=== PATIENT | male | born 1980 | race Hispanic/Latino ===

== ENCOUNTER 2017-02-16 21:15 | Emergency (ER) | payer MEDICARE, OTHER ==
[~2017-02-16] VITALS: Ht 160 cm; Wt 99.8 kg
[~2017-02-16 21:15] MED LIST: BISACODYL10 MG PR; CLONAZEPAM1 MG PO; DURAGESIC1 EAC1 TD; FENTANYL1 EAC2 TD; HYDROCHLOROTHIA25 MG PO; MIRALAX17 GM PO; OMEPRAZOLE20 MG PO; ONDANSETRON HCL4 MG PO; OXYCODONE HCL5 MG PO; PHENERGAN25 MG RC; SPIRONOLACTONE50 MG PO
[2017-02-16] MEDS ORDERED: COREG3.125 MG PO (21:28)
== END 2017-02-17 01:16 | disposition home or self-care (01) ==
LOC: ED 21:15
DX: R11.10 Vomiting, unspecified (principal); Z86.73 Personal history of transient ischemic attack (TIA), and cerebral infarction without residual deficits; Z91.018 Allergy to other foods; Z79.899 Other long term (current) drug therapy
CPT/HCPCS: 36415; 70450; 80053; 85025; 96361; 96374; 96375; 99284; J1200; J2405; J2765; J7040

== ENCOUNTER 2018-08-28 23:16 | Emergency (ER) | payer MEDICARE, OTHER ==
[~2018-08-28] VITALS: Ht 160 cm; Wt 95.2 kg
[~2018-08-28 23:16] MED LIST changes: +COREG3.125 MG PO
[2018-08-28] MEDS ORDERED: LISINOPRIL20 MG PO (23:39)
[2018-08-28] MEDS ORDERED: HYDROCHLOROTHIA25 MG PO (23:39)
--- NOTE | 2018-08-29 23:18 | EKG ---
[facility] [address] [place], [place] [address] Signed Normal sinus rhythm Normal ECG No previous ECGs available Confirmed by ARNULFO ANDREWS MD ([id number]) on 08/29/2018 11:18:28 PM Electronically Signed By: ARNULFO ANDREWS MD 08/29/18 2318 PATIENT NAME: CAROL LIAO Electrocardiogram DATE OF : 78 PHYSICIAN: ARNULFO ANDREWS MD REPORT #: [id number] REPORT IS CONFIDENTIAL AND NOT TO BE RELEASED WITHOUT AUTHORIZATION
== END 2018-08-29 03:40 | disposition home or self-care (01) ==
LOC: ED 23:16
DX: R26.81 Unsteadiness on feet (principal); Z86.73 Personal history of transient ischemic attack (TIA), and cerebral infarction without residual deficits; Z91.018 Allergy to other foods; Z79.899 Other long term (current) drug therapy
CPT/HCPCS: 36415; 70450; 80053; 81001; 84484; 85025; 93005; 93010; 99284-25; G0480

== ENCOUNTER 2021-02-04 05:50 | Day surgery (SDC) | payer MEDICARE, OTHER ==
[~2021-02-04] VITALS: Ht 160 cm; Wt 92.3 kg
[~2021-02-04 05:50] MED LIST changes: +ALLOPURINOL100 MG PO; +CALCITRIOL0.25 MCG PO; +LACTULOSE10 GM/15 M PO; +LISINOPRIL20 MG PO; +STOOL SOFTENER100 MG PO
--- NOTE | 2021-02-04 08:05 | NUR ---
02/04/21 0805 Irene Rodríguez 9085 PT ARRIVED IN PACU NON RESPONSIVE TO NOXIOUS STIMULI WITH OPA AND NPA IN PLACE. ABD SOFT AND PASSING FLATUS. 0800 NO CHANGE IN STATUS. NON RESPONSIVE.
--- NOTE | 2021-02-04 13:37 | NUR ---
PT RESTING IN BED, LANGUAGE BARRIER IS AN ISSUE. PTS' SISTER PRESENT, SPEAKS FLUENT ENGLIGH. PT DID NOT SPEAK AT ALL. GAVE BLESSSING, WILL FOLLOW
--- NOTE | 2021-02-05 08:13 | OR ---
[facility] [address] [place], [place] [address] Signed DATE OF OPERATION: 02/04/2021 SURGEON: Hernesto Garibay MD PREOPERATIVE DIAGNOSES: 1. Mother with colonic polyps in her 60s. 2. Chronic constipation. 3. Chronic intermittent rectal bleeding. 4. Hemorrhoids. 5. Diverticulosis. 6. Hyperplastic rectal polyp 2010. 7. Anemia of chronic kidney disease. POSTOPERATIVE DIAGNOSES: 1. Djyahov-cn-fostaghn diverticulosis. 2. Neumtvr-go-gukfvhjb internal hemorrhoids. PROCEDURE: Colonoscopy without biopsy. ESTIMATED BLOOD LOSS: None. INDICATIONS: Carol is a 40-year-old gentleman with long-time significant schizophrenia. He lives with his family and they help him significantly. He underwent colonoscopy back in 2010, was found to have a hyperplastic polyp in the rectum along with some diverticulosis and hemorrhoids. He has chronic constipation and suffers with intermittent rectal bleeding. He uses Citrucel and docusate to help with his bowel movements. We know his mother had colonic polyps removed in her 60s as well. Also, afraid he has anemia of chronic kidney disease. He was asked to see me for followup colonoscopy. In the office, I met with Carol and his brother and sister. I gave them a pamphlet on colonoscopy and we reviewed the nature of that test. There is risk including, but not limited to gas bloating, crampy abdominal pain, bleeding, perforation requiring surgery, and missed diagnosis. He also understands the need for monitored anesthesia care, given his very round full face, short heavy neck, and significant medical issues. We used monitored anesthesia care back in 2010 and worked out well today. He clearly obstructs airway very quickly. We had to use an oral airway during the procedure. Electronically Signed By: HERNESTO GARIBAY MD 02/05/21 0813 PATIENT NAME: CAROL LIAO OPERATIVE REPORT DATE OF : 78 REPORT #: [id number] PHYSICIAN: HERNESTO GARIBAY MD PCP: TERE DYER MD REPORT IS CONFIDENTIAL AND NOT TO BE RELEASED WITHOUT AUTHORIZATION [facility] [address], [place] [address] Signed DESCRIPTION OF PROCEDURE: Carol was taken into the endoscopy suite and placed in the left lateral decubitus position. He was maintained on IV propofol per our nurse drug and alcohol treatment specialist. A digital rectal exam was performed and this was unremarkable. Not too much in the way of any external hemorrhoid tissue. He had good sphincter tone. The adult colonoscope was then introduced and advanced around into the cecum under direct visualization of the camera. It took some extra sedation, abdominal compression, and rotating pretty in the supine position in order to reach the cecum. His prep was good. The scope was slowly withdrawn. We took pictures throughout for photodocumentation. Again, he has moderate-sized diverticula scattered throughout the colon. No polyps on this occasion. The rectum was unremarkable. Upon retroflexion of the scope, he does have gqbtrjj-of-vsvussjd internal hemorrhoid columns. After this, the gas was suctioned out and colonoscope removed. Carol tolerated procedure quite well. RECOMMENDATIONS: Carol can follow up in 5 years for repeat colonoscopy, given his mother's history. He can pursue conservative measures for his hemorrhoids including MiraLAX either on a daily basis or as needed for his constipation in addition to the Citrucel and docusate. He is also welcome to use any petroleum based product for lubrication before bowel movements. Hernesto Garibay MD ALB/MODL /[id number] cc: Chart Filed Incomplete MD Tere Galloway MD Copies: CHART FILED INCOMPLETE Electronically Signed By: HERNESTO GARIBAY MD 02/05/21812 PATIENT NAME: CAROL LIAO OPERATIVE REPORT DATE OF : 78 REPORT #: [id number] PHYSICIAN: HERNESTO GARIBAY MD PCP: TERE DYER MD REPORT IS CONFIDENTIAL AND NOT TO BE RELEASED WITHOUT AUTHORIZATION [facility] [address] [place] [address] [place], [place] [address] Signed HERNESTO GARIBAY MD ~ Electronically Signed By: HERNESTO GARIBAY MD 02/05/21812 PATIENT NAME: CAROL LIAO OPERATIVE REPORT DATE OF : 78 REPORT #: [id number] PHYSICIAN: HERNESTO GARIBAY MD PCP: TERE DYER MD REPORT IS CONFIDENTIAL AND NOT TO BE RELEASED WITHOUT AUTHORIZATION
== END 2021-02-04 08:25 | disposition home or self-care (01) ==
LOC: DS 05:50 → OPS 05:50 → DS 07:00 → OPS 07:00
PROVIDERS: ATTEND Colon & Rectal Surgery
PROC: 0DJD8ZZ Inspection of Lower Intestinal Tract, Via Natural or Artificial Opening Endoscopic (ICD-10-PCS; principal; 2021-02-04 07:00)
DX: K57.31 Diverticulosis of large intestine without perforation or abscess with bleeding (principal); K64.8 Other hemorrhoids; I12.9 Hypertensive chronic kidney disease with stage 1 through stage 4 chronic kidney disease, or unspecified chronic kidney disease; N18.4 Chronic kidney disease, stage 4 (severe); N25.81 Secondary hyperparathyroidism of renal origin; I67.5 Moyamoya disease; D63.1 Anemia in chronic kidney disease; E66.01 Morbid (severe) obesity due to excess calories; Z83.71 Family history of colonic polyps; Z87.19 Personal history of other diseases of the digestive system; Z79.899 Other long term (current) drug therapy; Z91.040 Latex allergy status; Z91.018 Allergy to other foods; Z68.36 Body mass index [BMI] 36.0-36.9, adult; Z01.812 Encounter for preprocedural laboratory examination; Z20.822 Contact with and (suspected) exposure to COVID-19; Z86.73 Personal history of transient ischemic attack (TIA), and cerebral infarction without residual deficits
CPT/HCPCS: J2704; J7121

== ENCOUNTER 2023-03-20 13:21 | Inpatient (IN) | payer MEDICARE, OTHER ==
[~2023-03-20] VITALS: Ht 160 cm; Wt 89.4 kg
--- OUTSIDE RECORDS SUMMARY | ~2023-03-20 | XMS | Continuity of Care Document ---
Demographics + + + | Address | [address] | | | [place] [address] | + + + | Preferred Language | Unknown | + + + | Marital Status | Never | + + + | Oriental Orthodox Affiliation | Unknown | + + + | Race | Unknown | + + + | Ethnic Group | Unknown | + + + Author + + + | Author | [facility] | + + + | Organization | [facility] | + + + | Address | [address] | | | [place] [address] | + + + | Phone | | + + + Care Team Providers + + + + | Care Manager Planning Name | Role | Phone | + + + + Unavailable | Unavailable | + + + + Allergies No information. Encounters No information. Functional Status No information. Immunizations No information. Medications No information. Problems + + + + | date | description | facility | + + + + | 2022-12-27 11:44 | UNILATERAL PRIMARY | [facility] | | | OSTEOARTHRITIS, RIGHT KNEE | | + + + + | 2022-12-27 11:44 | SYNOVIAL CYST OF POPLITEAL | [facility] | | | SPACE [MAGAÑA], RIGHT KNEE | | + + + + Procedures No information. Results/Labs No information. Social History No information. Vital Signs No information."
--- OUTSIDE RECORDS SUMMARY | ~2023-03-20 | XMS | Continuity of Care Document ---
Demographics + + + | Address | [address] | | | [place] [address] | + + + | Preferred Language | Unknown | + + + | Marital Status | Never | + + + | Islam Affiliation | Unknown | + + + | Race | Unknown | + + + | Ethnic Group | Unknown | + + + Author + + + | Author | [facility] | + + + | Organization | [facility] | + + + | Address | [address] | | | [place] [address] | + + + | Phone | | + + + Care Team Providers + + + + | Care Nuclear Equipment Research Engineer Name | Role | Phone | + [...]
--- OUTSIDE RECORDS SUMMARY | ~2023-03-20 | XMS | Continuity of Care Document ---
Demographics + + + | Address | [address] | | | [place] [address] | + + + | Preferred Language | Unknown | + + + | Marital Status | Never | + + + | Cheondoism Affiliation | Unknown | + + + | Race | Unknown | + + + | Ethnic Group | Unknown | + + + Author + + + | Author | [facility] | + + + | Organization | [facility] | + + + | Address | [address] | | | [place] [address] | + + + | Phone | | + + + Care Team Providers + + + + | Care Quote Clerk Name | Role | Phone | + + + + Unavailable | Unavailable | + + + + Allergies and Intolerances + + + + + + | date | description | facility | reaction | severity | + + + + + + | (no date) | latex | [facility] | (no reaction) | (no severity) | + + + + + + | (no date) | tomato | [facility] | (no reaction) | (no severity) | + + + + + + | (no date) | orange | [facility] | (no reaction) | (no severity) | + + + + + + Encounters No information. Functional Status No information. [...]
[2023-03-20] MEDS ORDERED: ALLOPURINOL300 MG PO (13:55)
[2023-03-20 14:05] LABS: BASOPHILS 0.8 % (0-2); HEMATOCRIT 27.5 % (35.0-50.0); LYMPHOCYTES 2.2 % (24-44); MCH 30.5 (27-36); MCHC 32.8 g/dl (30-36); MONOCYTES 7.4 % (0-12); NEUTROPHILS 89.6 % (39-80); PLATELET COUNT 185 K/uL (140-440); RBC 2.96 M/ul (4.3-5.7); RDW 15.3 (10.5-15.0)
[2023-03-20 14:23] LABS: INR 1.25 (0.80-1.30); LACTIC ACID, BLOOD 1.4 mmol/L (0.4-2.0); PROTIME 15.2 Sec (11.2-14.2)
[2023-03-20 14:25] LABS: ALBUMIN 3.6 g/dL (3.4-5.0); ALBUMIN/GLOBULIN RATIO 1.06 (1.1-2.4); ANION GAP 16.9 (7-21); BILIRUBIN, TOTAL 0.3 ng/dL (0.2-1.0); BUN/CREATININE RATIO 14.71 (6.0-28.6); CALCIUM 8.9 mg/dL (8.5-10.1); CREATININE, SERUM 5.64 mg/dL (0.70-1.30); POTASSIUM 3.9 mmol/L (3.5-5.1)
[2023-03-20 14:37] LABS: BILIRUBIN, URINE NEGATIVE (negative); BLOOD/HGB, URINE SMALL (Negative); KETONE, URINE NEGATIVE (Negative); LEUK ESTERASE, URINE NEGATIVE (negative); NITRITE, URINE NEGATIVE (negative); PH, URINE 5.5 (5-7)
[2023-03-20 14:43] LABS: INFLUENZA B NAA NEGATIVE (NEGATIVE); RESPIRATORY SYNCYTIAL VIR NAA NEGATIVE (NEGATIVE)
[2023-03-20 14:45] LABS: BACTERIA, URINE RARE /hpf (negative); CASTS, URINE NONE SEEN \\lpf; COLLECTION TYPE, URINE CLEAN CATCH; CRYSTALS, URINE NONE SEEN (0-1+); EPITHELIAL CELLS, URINE 0 /lpf (0-1+); RED BLOOD CELLS, URINE 0-1 /hpf (0-5); REFLEX CULTURE, URINE No (No); WHITE BLOOD CELLS, URINE 0-1 /HPF (0-5)
[2023-03-20 16:17] LABS: BUN/CREATININE RATIO 15.77 (6.0-28.6); CREATININE, SERUM 5.07 mg/dL (0.70-1.30)
[2023-03-20 18:21] VITALS: BP 114/55
--- NOTE | 2023-03-20 18:23 | NUR ---
TO ER FOR PATIENT. PATIENT TRANSPORTED VIA GURNEY, WAS ABLE TO TRANSFER SELF FROM GURNEY TO BED. PARENTS ARE IN ROOM.
--- NOTE | 2023-03-20 19:00 | NUR ---
REPORT RECEIVED FROM OFFGOING RNFERN. PT RESTING IN BED, FAMILY AT BEDSIDE. CALL LIGHT IN REACH.
[2023-03-20 20:11] VITALS: BP 115/63
--- NOTE | 2023-03-20 20:26 | NUR ---
PT ASSESSMENT COMPLETE. PT RESTING IN BED, FAMILY PRESENT AT BEDSIDE. PT NONVERBAL, FAMILY ABLE TO UNDERSTAND PT NEEDS. PT FAMILY REPORTS PT HAS BEEN HAVING A HEADACHE. PT POINTS TO HIS HEAD WITH A GRIMACE ON HIS FACE. PRN TO DO BE ADMINISTERED. LUNG SOUNDS CLEAR THROUHGOUT, SA02 100%. OCCASIONAL COUGH NOTED DURING ASSESSMENT. PT UP TO BATHROOM AND BACK TO BED WITH FAMILY'S ASSISTANCE. TOLERATED WELL. IV FLUSHED X 2, WNL. VS OBTAINED. WNL. FAMILY REQUESTS ICE CHIPS, SANDWHICH BOX, PROVIDED. FURTHER NEEDS DENIED AT THIS TIME. CALL LIGHT IN REACH. FAMILY REMAINS AT BEDSIDE.
--- NOTE | 2023-03-20 20:55 | NUR ---
BOARD LINING MACHINE OPERATOR TO BEDSIDE WITH PRN FOR HEADACHE. PT'S SISTER REPORTS THAT HEADACHE IS GONE. WHEN SHE ASKS PT IF HE STILL HAS HEADACHE HE SHAKES HIS HEAD NO. PRN RETURNED TO PYXIS. FURTHER NEEDS DENIED AT THIS TIME. CALL LIGHT IN REACH.
--- NOTE | 2023-03-21 00:06 | NUR ---
PT ROUNDING. PT RESTING IN BED WITH EYES CLOSED. RESPIRATIONS EVEN AND UNLABORED. PT'S BROTHER RESTING ON COUCH. UPDATED REGARDING PLAN OF CARE FOR THIS SHIFT. HE STATES UNDERSTANDING. DENIES FURTHER NEEDS. CALL LIGHT IN REACH.
--- NOTE | 2023-03-21 02:20 | NUR ---
PT ASSESSMENT COMPLETE. PT UP TO BATHROOM AND BACK TO BED WITH 1 PA, PT'S BROTHER ASSISTS HIM. PT TOLERATED WELL. WHILE UP IN BATHROOM BEGAN COUGHING. LUNGS CLEAR THROUHGOUT. SA02 100% ON RA. ICE WATER REFILLED. IVF INFUSING ORDERED. PTS BROTHER DENIES FURTHER NEEDS AT THIS TIME. CALL LIGHT IN REACH.
[2023-03-21 02:22] VITALS: BP 127/79
--- NOTE | 2023-03-21 04:16 | NUR ---
PT UP TO BATHROOM AND BACK TO BED WITH 1 PA, TOLERATED WELL. ICE WATER REFILLED. PT'S BROTHER REMAINS AT BEDSIDE. DENIES FURTHER NEEDS. CALL LIGHT IN REACH.
[2023-03-21 05:49] VITALS: BP 120/78
[2023-03-21 05:54] LABS: BASOPHILS 0.4 % (0-2); EOSINOPHILS 0.1 % (0-6); HEMATOCRIT 25.8 % (35.0-50.0); HEMOGLOBIN 8.4 g/dL (12.0-18.0); LYMPHOCYTES 7.7 % (24-44); MCH 30.3 (27-36); MCHC 32.7 g/dl (30-36); MCV 92.8 fl (81-99); MONOCYTES 10.2 % (0-12); NEUTROPHILS 81.6 % (39-80); PLATELET COUNT 192 K/uL (140-440); RBC 2.78 M/ul (4.3-5.7); RDW 15.2 (10.5-15.0)
--- NOTE | 2023-03-21 05:58 | NUR ---
primary rn notified patient's temp is 101.9 orally.
[2023-03-21 06:03] LABS: ANION GAP 17.4 (7-21); BUN/CREATININE RATIO 14.6 (6.0-28.6); CALCIUM 8.6 mg/dL (8.5-10.1); CREATININE, SERUM 4.86 mg/dL (0.70-1.30); POTASSIUM 4.4 mmol/L (3.5-5.1)
--- NOTE | 2023-03-21 06:39 | NUR ---
PT CALLS TO USE BR. SBA TO THE BR AND BACK TO BED. ICE WATER PROVIDED. FAMILY STATES NO OTHER NEEDS. CALL LIGHT IN REACH.
--- NOTE | 2023-03-21 07:30 | NUR ---
REPORT RECIEVED FROM MACARENA SALCIDO. PT RESTING IN BED. BROTHER IN CHAIR.
[2023-03-21] MEDS ORDERED: LISINOPRIL10 MG PO (10:01)
[2023-03-21] MEDS ORDERED: HYDROCHLOROTH12.5 MG PO (10:01)
[2023-03-21 10:12] VITALS: BP 102/77
--- NOTE | 2023-03-21 10:30 | NUR ---
ASSISTED PT AND BROTHER TO RESTROOM. 300 LIGHT YELLOW URINE OUT. PT TOLERATED AMBULATION WELL.
[2023-03-21] MEDS ORDERED: METAMUCIL660 GM PO (12:34)
[2023-03-21] MEDS ORDERED: MYLANTA MAXIMU355 ML PO (12:34)
--- NOTE | 2023-03-21 12:35 | NUR ---
MED REC COMPLETE
[2023-03-21 14:17] VITALS: BP 102/63
--- NOTE | 2023-03-21 17:16 | NUR ---
PT REPORTS HAVING A HEADACHE. WILL ADMININSTER TYLENOL WHEN AVAILABLE. FAMILY HELPING HIM TO EAT DINNER.
[2023-03-21 18:05] VITALS: BP 121/69
--- NOTE | 2023-03-21 19:44 | NUR ---
RECEIVED REPORT FROM DAY SHIFT RN. PATIENT ASSISTED TO THE BR. PATIENT ABLE TO VOID AND HAVE SMALL BM. PATIENT IS BACK IN BED RESTING. FAMILY AT BEDSIDE. NO FURTHER NEEDS NOTED. CALL LIGHT IN REACH.
[2023-03-21 20:25] VITALS: BP 125/81
--- NOTE | 2023-03-21 20:41 | NUR ---
PATIENT ASSESMENT COMPLETED. PATIENTS LEFT HAND IS NOTED TO HAVE EDEMA. IV FLUSHES WELL IN LEFT HAND. LEFT HAND ELEVATED ON A PILLOW. IV NOW INFUSING IN RIGHT AC. PATIENT APPEARS COMFORTABLE AND IS SNORING THROUGH ASSESMENT. PATIENTS FAMILY AT BEDSIDE AND REPORTS PATIENT APPEARS COMFORTABLE. PATIENTS PM MEDS INFUSING PER ORDER. PATIENTS VITALS TAKEN AND RECORDED. INTAKE AND OUTPUT RECORDED. NO FURTHER NEEDS NOTED. CALL LIGHT IN REACH. FAMILY REMAIN IN ROOM.
--- NOTE | 2023-03-21 22:13 | NUR ---
PATIENT IS RESTING IN BED WITH EYES CSLOED, RR 18. CALL LIGHT IN REACH. FAMILY AT BEDSIDE. NO NEEDS NOTED. IV INFUSING PER ORDER.
--- NOTE | 2023-03-21 23:28 | NUR ---
PATIENT USED THE BATHROOM AND HAD SMALL BM AND 700ML LIGHT URINE. PATIENT IS BACK IN BED. FAMILY IS IN THE ROOM ASSISTING. JUICE PROVIDED.
--- NOTE | 2023-03-22 00:30 | NUR ---
PATIENT IS RESTING IN BED WITH EYES CLOSED, RR 15. FAMILY AT BEDSIDE. NO NEEDS NOTED. CALL LIGHT IN REACH.
--- NOTE | 2023-03-22 02:09 | NUR ---
PATIENT IS RESTING IN BED WITH EYES CLSOED, RR 15. CALL LIGHT IN REACH. BROTHER ASLEEP ON COUCH. CALL LIGHT IN REACH. IV INFUSING PER ORDER.
--- NOTE | 2023-03-22 04:02 | NUR ---
PATIENT IS RESTING IN BED WITH EYES CLOSED, RR19. PATIENTS BROTHER IS ASLEEP ON THE COUCH. IV INFUSING PER ORDER. CALL LIGHT IN REACH.
[2023-03-22 05:07] VITALS: BP 125/72
[2023-03-22 05:54] LABS: HEMOGLOBIN 8.2 g/dL (12.0-18.0)
[2023-03-22 05:55] LABS: BASOPHILS 0.6 % (0-2); EOSINOPHILS 0.8 % (0-6); LYMPHOCYTES 20.4 % (24-44); MCH 29.6 (27-36); MCHC 31.7 g/dl (30-36); MCV 93.4 fl (81-99); MONOCYTES 11.5 % (0-12); NEUTROPHILS 66.7 % (39-80); PLATELET COUNT 180 K/uL (140-440); RBC 2.78 M/ul (4.3-5.7); RDW 15.3 (10.5-15.0)
--- NOTE | 2023-03-22 06:03 | NUR ---
PATIENT UP TO THE BR WITH FAMILY AND ABLE TO VOID. PATIENT IS BACK IN BED RESTING. VITALS TAKEN AND RECORDED. INTAKE AND OUTPUT RECORDED. PATIENTS BROTHER REPORTS PATIENT HAS A HEADACHE. PATIENT GIVEN PRN TYLENOL. PATIENT PROVIDED WITH JUICE AND WATER. PATIENT REMAINS ON RA. PATIENT DENIES ANY FURTHER NEEDS. CALL LIGHT IN REACH. IV INFUSING PER ORDER. CALL LIGHT IN REACH.
[2023-03-22 06:06] LABS: ANION GAP 18.1 (7-21); BUN/CREATININE RATIO 14.49 (6.0-28.6); CALCIUM 8.3 mg/dL (8.5-10.1); CREATININE, SERUM 4.76 mg/dL (0.70-1.30); POTASSIUM 4.1 mmol/L (3.5-5.1)
--- NOTE | 2023-03-22 07:30 | NUR ---
REPORT RECIEVED FROM MACARENA FRANK. PATIENT IS SLEEPING, BROTHER IS IN ROOM.
--- NOTE | 2023-03-22 08:10 | NUR ---
PT IS CURRENTLY RESTING IN BED WITH EYES CLOSED. PT FAMILY AT THE BEDSIDE. PT FAMILY PROVIDED WITH MEAL VOUCHER CARD. NO NEEDS AT THIS TIME. CALL LIGHT IN REACH.
--- NOTE | 2023-03-22 08:14 | NUR ---
MORNING ASSESSMENT IS COMPLETE. LUNGS ARE CLEAR, PATIENT IS ON ROOM AIR. PATIENT CONTINUES TO SLEEP AND SNORE SOFTLY THROUGHOUT ASSESSMENT, AND SEEMS COMFORTABLE. PATIENT'S BROTHER IS IN ROOM. JUICE AND BREAKFAST IN ROOM FOR PATIENT.
[2023-03-22 09:08] VITALS: BP 100/84
--- NOTE | 2023-03-22 10:26 | NUR ---
PATIENT IS RESTING IN BED, DENIES NEEDS, DENIES NEED FOR MORE TYLENOL AT THIS TIME. I/O COMPLETE.
--- NOTE | 2023-03-22 11:15 | NUR ---
PATIENT IS RESTING IN BED, MOM AND SISTER ARE IN ROOM VISITING. PATIENT AND FAMILY DENY NEEDS.
--- NOTE | 2023-03-22 11:45 | NUR ---
pt was assisted top the restroom. family are with patient assisting with cares
[2023-03-22 13:46] VITALS: BP 122/64
--- NOTE | 2023-03-22 13:49 | NUR ---
PATIENT IS UP TO CHAIR, DENIES NEEDS, DOES ENDORSE THAT HE FEELS WEAK IN HIS ARMS, SLIGHT COUGH NOTED. VITALS ARE STABLE, 100% ON ROOM AIR. I/O COMPLETE.
--- NOTE | 2023-03-22 14:11 | NUR ---
REPORT GIVEN TO MACARENA LONG, WHO IS ASSUMING CARE.
--- NOTE | 2023-03-22 15:11 | NUR ---
Family in room. Sister states patient lives with mother in the home. Multiple siblings assist her with patient's cares, transportation, appointments, etc. Has a walker, does not use due to difficulty using his hands. Sister states they have no needs at this time and will notify staff if something arises.
--- NOTE | 2023-03-22 16:27 | NUR ---
FAMILY REMAINS AT BEDSIDE AND VERY INVOLVED IN PT CARE. DENY PT NEEDS ATT.
[2023-03-22 18:18] VITALS: BP 160/75
--- NOTE | 2023-03-22 19:26 | NUR ---
RECEIVED REPORT FROM PROPERTY CONDITION ASSESSOR. PATIENT TANSFERRED TO HOSPITAL BED FROM [facility]. ADMISSION COMPLETED BY KETURAH FIORE. PATIENT ORIENTED TO ROOM. PATIENT DENIES ANY NEEDS. CALL LIGHT IN REACH.
--- NOTE | 2023-03-22 19:32 | NUR ---
RECEIVED REPORT FROM DAY SHIFT RN. PATIENT IS RESTING IN BED. FAMILY AT BEDSIDE. NO NEEDS NOTED. CALL LIGHT IN REACH.
[2023-03-22 20:48] VITALS: BP 132/81
--- NOTE | 2023-03-22 21:07 | NUR ---
PATIENT ASSISTED TO THE BR A 1PA. PATIENT ABLE TO VOID AND HAVE LOOSE BM. PATIENT IS BACK IN BED RESTING. PATIENTS VITALS TAKEN AND RECORDED. PATIENTS INTAKE AND OUTPUT RECORDED. PATIENTS PM MEDS GIVEN PER ORDER. PATIENT REPORTS HEADACHE, PRN TYENOL GIVEN PER ORDER. PATIENTS LEFT HAND CONTINUES TO HAVE EDEMA. PATIENTS IV FLUSHES AND INFUSES WELL. PATIENTS LEFT HAND REAMINS ELEVATED ON PILLOW AND EDUCATED PATIENTS FAMILY TO KEEP LEFT HAND AND ARM ELEVATED. PATIENT PROVIDED WITH [employer]. FAMILY REMAINS AT BEDSIDE. NO FURTHER NEEDS NOTED. CALL LIGHT IN REACH.
--- NOTE | 2023-03-22 22:07 | NUR ---
PATIENT IS RESTING IN BED WITH EYES CLOSED, RR 17. CALL LIGHT IN REACH. IV INFUSING PER ORDER. FAMILY AND BEDSIDE. NO NEEDS NOTED. CALL LIGHT IN REACH.
--- NOTE | 2023-03-23 00:18 | NUR ---
PATIENT IS RESTING IN BED WITH EYES CLSOED, RR18. CALL LIGHT IN REACH. IV INFUSING PER ORDER. BROTHER PRESENT IN ROOM AND DENIES ANY NEEDS. CALL LIGHT IN REACH.
[2023-03-23 05:21] VITALS: BP 127/87
--- NOTE | 2023-03-23 05:59 | NUR ---
PATIENT UP TO THE BR A 1PA. PATIENT ABLE TO VOID. PATIENT IS BACK IN BED RESTING. VITALS TAKEN AND RECORDED. INTAKE AND OUTPUT RECORDED. PATIENTS BROTHER AT [facility]. NO NEEDS NOTED. CALL LIGHT IN REACH. IV INFUSING PER ORDER. APPLE JUICE AND FRESH ICE WATER PROVIDED.
[2023-03-23 06:27] LABS: BASOPHILS 0.7 % (0-2); EOSINOPHILS 3.9 % (0-6); HEMATOCRIT 25.6 % (35.0-50.0); HEMOGLOBIN 8.2 g/dL (12.0-18.0); LYMPHOCYTES 16.7 % (24-44); MCH 29.3 (27-36); MCHC 32.2 g/dl (30-36); MCV 91.1 fl (81-99); MONOCYTES 8.7 % (0-12); PLATELET COUNT 179 K/uL (140-440)
[2023-03-23 06:36] LABS: ANION GAP 13.3 (7-21); BUN/CREATININE RATIO 14.08 (6.0-28.6); CREATININE, SERUM 4.26 mg/dL (0.70-1.30); POTASSIUM 3.3 mmol/L (3.5-5.1)
--- NOTE | 2023-03-23 07:08 | NUR ---
REPORT RECEIVED FROM MACARENA FRANK. PT RESTING IN BED WITH EYES CLOSED RR EVEN AND UNLABORED. NO NEEDS IDENTIFIED AT THIS TIME. CALL LIGHT IN REACH. FAMILY IN ROOM.
--- NOTE | 2023-03-23 07:50 | NUR ---
THE PT IS CURRENTLY UP TO THE BATHROOM WITH FAMILY ASSISTANCE. NO IMMEDIATE NEEDS AT THIS TIME. BATHROOM PULL SWITCH WITHIN REACH IF NEEDED.
[2023-03-23 09:15] VITALS: BP 127/82
--- NOTE | 2023-03-23 09:17 | NUR ---
IN TO ADMINISTER MEDICATIONS, SEE MAR. PT AMBULATING TO BED FROM RESTROOM WITH BROTHER'S ASSISTANCE. ASSESSMENT COMPLETE. LUNG SOUNDS CLEAR IN RUL, JAYCEE AND LLL. DIMINISHED IN RLL. BOWEL TONES ACTIVE. PT REPORTING PAIN IN RIGHT LEG, PER PT's BROTHER RIGHT LEG PAIN IS CHRONIC. BM AND VOID NOTED. VITALS AND I&Os COMPLETE. PTs BROTHER DENIES ANY NEEDS AT THIS TIME. PT RESTING IN BED. PT DENIES ANY NEEDS. CALL LIGHT IN REACH.
[2023-03-23 10:57] VITALS: BP 122/75
--- NOTE | 2023-03-23 10:57 | NUR ---
THIS RN IN TO GO OVER DC PACKET WITH FAMILY. VERBAL AND WRITTEN MATERIALS PROVIDED IN RWANDAN AND IRISH. QUESTIONS ANSWERED. IV's REMOVED, SEE VASCULAR ACCESS. VITALS COMPLETE. FAMILY IN ROOM ASSISTING PT WITH GETTING DRESSED. FAMILY INFORMED TO CALL WHEN READY TO LEAVE. FAMILY VERBALIZE UNDERSTANDING. NO OTHER NEEDS FROM THIS RN AT THIS TIME.
--- NOTE | 2023-03-23 11:08 | NUR ---
FAMILY AND PT READY TO LEAVE. ULYSSES DUQUE ASSIST WITH WHEELING PT OUT TO VEHICLE. NO NEEDS FROM THIS RN AT THIS TIME.
== END 2023-03-23 11:04 | disposition home or self-care (01) | DRG 871 ==
LOC: ED 13:21 → MS 16:51
PROVIDERS: Family Medicine; ADMIT Family Medicine; ATTEND Family Medicine
PROC: XW033E5 Introduction of Remdesivir Anti-infective into Peripheral Vein, Percutaneous Approach, New Technology Group 5 (ICD-10-PCS; principal; 2023-03-20)
PROC: 8E0ZXY6 Isolation (ICD-10-PCS; 2023-03-20)
DX: A41.89 Other specified sepsis (principal); U07.1 COVID-19; N17.9 Acute kidney failure, unspecified; E87.20 Acidosis, unspecified; Q61.3 Polycystic kidney, unspecified; R65.20 Severe sepsis without septic shock; I12.9 Hypertensive chronic kidney disease with stage 1 through stage 4 chronic kidney disease, or unspecified chronic kidney disease; N18.9 Chronic kidney disease, unspecified; D63.1 Anemia in chronic kidney disease; Q90.9 Down syndrome, unspecified; R10.9 Unspecified abdominal pain; R63.0 Anorexia; G89.29 Other chronic pain; T46.4X5A Adverse effect of angiotensin-converting-enzyme inhibitors, initial encounter; M79.604 Pain in right leg; E86.0 Dehydration; Z91.018 Allergy to other foods; Z91.040 Latex allergy status; Z79.899 Other long term (current) drug therapy; Z86.73 Personal history of transient ischemic attack (TIA), and cerebral infarction without residual deficits; Z68.34 Body mass index [BMI] 34.0-34.9, adult; Z79.811 Long term (current) use of aromatase inhibitors
CPT/HCPCS: 36415; 71045; 74177; 80048; 80053; 81001; 82565; 83605; 83690; 84520; 85025; 85610; 87502; A9270; C9803; J0248; J1650; J7030; J7050; J7070; Q9967; U0002